=== PATIENT | female | born 2000 | race Caucasian/White ===

== ENCOUNTER 2018-01-21 23:46 | Inpatient (IN) | payer OTHER ==
[~2018-01-21] VITALS: Ht 157.5 cm; Wt 93.5 kg
[2018-01-21 23:55] VITALS: BP 127/88
[2018-01-22] VITALS (17 sets, daily range): BP systolic 106–131; BP diastolic 62–80
[2018-01-22 00:29] LABS: URINE BLOOD 3+ (Negative); URINE COLOR YELLOW; URINE GLUCOSE-RANDOM NEGATIVE (Negative); URINE KETONES NEGATIVE (Negative); URINE LEUKOCYTES-REFLEX TRACE (Negative); URINE NITRITE-REFLEX NEGATIVE (Negative); URINE PROTEIN 2+ (Negative); URINE SPECIFIC GRAVITY >= 1.030 (1.005-1.030); URINE UROBILINOGEN 0.2 E.U./dl (0.2-1.0)
--- NOTE | 2018-01-22 00:30 | NUR ---
PT'S FATHER HAS A PICTURE OF A BOTTLE OF AMITRIPTYLINE, 10 MG THAT HE CLAIMS THE PT TOLD HIM WERE THE PILLS SHE TOOK
[2018-01-22 00:32] LABS: ABSOLUTE BASOPHILS 0.1 thou/uL (0.0-0.2); ABSOLUTE LYMPHOCYTES 1.7 thou/uL (0.8-5.3); ABSOLUTE MONOCYTES 0.4 thou/uL (0.0-1.2); ABSOLUTE NEUTROPHILS 10.4 thou/uL (1.6-8.1); BASOPHILS 0.6 %; EOSINOPHILS 0.3 %; HEMATOCRIT 39.9 % (37.0-47.0); HEMOGLOBIN 13.2 gm/dL (12.0-15.0); LYMPHOCYTES 13.1 %; MCH 27.8 pg (26.0-34.0); MCHC 33.2 g/dL (28.0-37.0); MPV 9.1 fl. (7.2-11.1); NUCLEATED RBCS 0 /100WBC; PLATELET COUNT* 274 thou/uL (150-400); RBC 4.75 mil/uL (4.20-5.00); WBC 12.6 thou/uL (4.0-11.0)
[2018-01-22 00:33] LABS: URINE BILIRUBIN 1+ (Negative)
[2018-01-22 00:34] LABS: URINE CLARITY SL HAZY
[2018-01-22 00:35] LABS: ICTOTEST (BILI CONFIRMATORY) Negative (Negative)
[2018-01-22 00:36] LABS: AMP/METHAMP Negative (Negative); BARBITURATES Negative (Negative); BENZODIAZEPINES Negative (Negative); COCAINE Negative (Negative); METHADONE Negative (Negative); OPIATES Negative (Negative); PCP Negative (Negative); THC POSITIVE (Negative)
[2018-01-22 00:45] LABS: CALCIUM 8.8 mg/dL (8.5-10.1); CREATININE 0.9 mg/dL (0.6-1.3); POTASSIUM 4.1 mmol/L (3.5-5.1)
[2018-01-22 00:50] LABS: ALBUMIN 3.7 g/dL (3.4-5.0); TOTAL BILIRUBIN 0.4 mg/dL (<0.1-1.0); TOTAL PROTEIN 7.9 g/dL (6.4-8.2)
[2018-01-22 00:54] LABS: ACETAMINOPHEN < 2 ug/mL (10-30); ALCOHOL < 10 mg/dL (<10); SALICYLATE < 2.8 mg/dL (2.8-20.0)
[2018-01-22 00:57] LABS: SQUAMOUS >10 Many /LPF (0-3)
[2018-01-22 00:58] LABS: CASTS None Seen /LPF (None Seen)
[2018-01-22 00:59] LABS: BACTERIA-REFLEX >30 Many /HPF (None Seen); CRYSTALS None Seen /LPF (None Seen); URINE RBC >20 Many /HPF (0-2); URINE WBC-REFLEX 6-15 Few /HPF (0-5)
--- NOTE | 2018-01-22 06:54 | NUR ---
PATIENT ARRIVED ON UNIT AT 0230. INSOLE ROUNDER COMPLETED DOCUMENTED. SCD'S IN PLACE. PATIENT ABLE TO AMBULATE INDEPENDENTLY TO THE BS. NO PROBLEMS URINATING. URINE YELLOW AND CLEAR. IV PATENT TO FLUIDS. SITTER IN PLACE. ROOM SCRUBBED PER PROTOCOL. NO COMPLAINTS OF PAIN OR DISCOMFORT NOTED. SIGNIFICANT OTHER AT BEDSIDE THIS MORNING. PATIENT HAD TO BE REORIENTED TO WHERE SHE WAS AND WHAT HAPPENED WHEN SHE AWAKENED THIS AM. WILL CONTINUE TO MONITOR.
--- NOTE | 2018-01-22 08:19 | NUR ---
0730 ASSUMED CARE OF PATIENT. SEE DOCUMENTED ASSESSMENT. PT IS POSSIBLE SI AND ROM SCRUBBED OF ALL HARMFUL EQUIPMENT. VISITOR SCRUBBED. DR TINSLEY TO SEE PATIENT AND ORDERS NOTED. PT CAN BE TELE STATUS. SITTER AT BEDSIDE.
--- NOTE | 2018-01-22 08:20 | NUR ---
PSYCH CONSULT CALLED AND CONTACT MADE WITH E PSYCH
--- NOTE | 2018-01-22 11:21 | NUR ---
PSYCH RECOMMKENDATIONS TO DR TINSLEY;FATHER NOTIFIED OF PLAN OF CARE. CASE MANAGEMENT NOTIFIED OF PLAN OF CARE AND GOALS.
--- NOTE | 2018-01-22 13:07 | EKG ---
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2000 Requested By: Miguel Fleming Order Number: [id number] MD: Christian Serrano Measurements Intervals [place] Rate: 126 P: 39 VA: 144 QRS: 11 QRSD: 73 T: 1 QT: 294 QTc: 426 Interpretive Statements Sinus tachycardia Ventricular premature complex Borderline T abnormalities, anterior leads No previous ECG available for comparison Electronically Signed On 01-22-2018 13:07:38 CDT by Christian Serrano [email or web address] <ELECTRONICALLY SIGNED> By: Christian Serrano MD, [facility] 01/22/18 1307 0016 001 Christian Serrano MD, [facility] /EPI
--- NOTE | 2018-01-22 13:11 | NUR ---
PT IS TELE STATUS IN THE ICU. AWAITING DISPOSITION PER PSYCHIATRIST RECOMMENDATIONS
--- NOTE | 2018-01-22 13:57 | NUR ---
DR PERAZA HERE TO SEE PATIENT AND PLANS TO DO CARDIAC CATH TODAY. PATIENT HAS HAD PRIOR STENT AND INDICATES UNDERSTANDING OF PROCEDURE. PT SIGNED CONSENT FOR CARDIAC CATH. HAS BEEN NPO SINCE ADMISSION.
--- NOTE | 2018-01-22 15:51 | EKG ---
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2000 Requested By: Nagi Harrison Order Number: [id number] MD: Christian Serrano Measurements Intervals [place] Rate: 83 P: 46 ME: 153 QRS: 7 QRSD: 83 T: 5 QT: 370 QTc: 435 Interpretive Statements Sinus rhythm Borderline T abnormalities, anterior leads Compared to ECG 01/22/2018 00:16:44 Sinus tachycardia no longer present Ventricular premature complex(es) no longer present T-wave abnormality still present Electronically Signed On 01-22-2018 15:51:36 CDT by Christian Serrano [email or web address] <ELECTRONICALLY SIGNED> By: Christian Serrano MD, [facility] 01/22/18 1551 [id number] [id number] Christian Serrano MD, [facility] /EPI
--- NOTE | 2018-01-22 16:10 | NUR ---
REPORTED TO PATIENT THAT NURSE WHO ADMITTED HIM LET MORTAR MIXER OPERATOR KNOW HIS FRIEND HAD TAKEN HIS WALLET AND PHONE WITH HIM WHEN HE LEFT. PATIENT IS REASSURED
--- NOTE | 2018-01-22 16:49 | NUR ---
PATIENT AND FATHER NOTIFIED OF PLAN MOVE TO 229
--- NOTE | 2018-01-22 17:13 | NUR ---
PATIENT PROGRESSING TOWARDS GOALS. PSYCH CONSULT COMPLETED. DIET RESUMED. NOW OFF OF IVF AND WILL MOVE TO TELEMETRY. SAFETY MAINTAINED WITH SITTER. HAS HAD VISITORS AND SUPPORT FROM FAMILY. GOAL IS TRANSITION TO INPATIENT PSYCH
--- NOTE | 2018-01-22 18:32 | NUR ---
TRANSFERRED PER WHEELCHAIR TO 214 WITH ALL RECORDS AND BELONGINGS. SITTER IN ATTENDANCE
--- NOTE | 2018-01-22 18:55 | NUR ---
RECEIVED SBAR FROM ICU AND ASSUMED CARE OF PT @ 1830.PT IS A/O X4,VSS,TRACING SR ON THE MONITOR.PT IS CALM AND COOPERATIVE WITH SITTER AT BEDSIDE.PT IS UP AD HAN.RESTING IN BED WITH CALL LIGHT IN PLACE.WILL CONTINUE TO MONITOR FOR DURATION OF SHIFT.
--- NOTE | 2018-01-22 23:34 | NUR ---
PATIENT RESTING/SLEEPING. VISITOR EARLIER. DENIES COMPLAINTS. ONE TO ONE SITTER. NO SIGN OF DISTRESS.
[2018-01-23 00:08] VITALS: BP 120/69
[2018-01-23 03:42] VITALS: BP 117/72
--- NOTE | 2018-01-23 06:42 | NUR ---
PATIENT HAS SLEPT THE BIGGEST PART OF THIS SHIFT. SHE STATES FEELS OK. DOES NOT SAY MUCH. VISITOR EARLIER IN EVENING YESTERDAY. CONT. ONE TO ONE SITTER
--- NOTE | 2018-01-23 07:00 | NUR ---
CHANGE OF SHIFT REPORT GIVEN PATIENT SEEN IN ROOM AND IN BED SITTER SI, ROOM PREPARED PATIENT DENIES SI/HI THOGHTS AND IDEAS ASSUMED PATIENT CARE
[2018-01-23 08:00] VITALS: BP 113/65
[2018-01-23 09:52] LABS: ABSOLUTE EOSINOPHILS 0.1 thou/uL (0.0-0.7); ABSOLUTE LYMPHOCYTES 1.9 thou/uL (0.8-5.3); ABSOLUTE MONOCYTES 0.4 thou/uL (0.0-1.2); BASOPHILS 0.5 %; HEMATOCRIT 38.4 % (37.0-47.0); HEMOGLOBIN 12.9 gm/dL (12.0-15.0); LYMPHOCYTES 25.6 %; MCH 28.5 pg (26.0-34.0); MCHC 33.5 g/dL (28.0-37.0); MCV 84.9 fL (80.0-100.0); MPV 8.6 fl. (7.2-11.1); NUCLEATED RBCS 0 /100WBC; PLATELET COUNT* 258 thou/uL (150-400); POLYS 67.9 %; RBC 4.52 mil/uL (4.20-5.00); WBC 7.4 thou/uL (4.0-11.0)
--- NOTE | 2018-01-23 10:03 | NUR ---
Pt in agreement with going to in psych, Pt stated that she does not want to go to [facility], but is open to any other facility. Pt is A&O. Independent, works FT. Lives at home with her boyfriend. Pt stated that she moved out of her parents home about 5months ago and stated that money is tight at home, she has been stressed out with financial issues, and wanted to just sleep the day that she took all of the pills. Pt stated that she was not trying to harm herself, Pt was able to understand the hospital responsibility towards a situation like this. CM faxed referral sto [facility]. Awaiting decision to accept. Pt is medically stable for dc. Following.
[2018-01-23 10:14] LABS: ALBUMIN 3.3 g/dL (3.4-5.0); CALCIUM 8.3 mg/dL (8.5-10.1); CREATININE 0.7 mg/dL (0.6-1.3); POTASSIUM 3.7 mmol/L (3.5-5.1); TOTAL BILIRUBIN 0.6 mg/dL (<0.1-1.0); TOTAL PROTEIN 7.3 g/dL (6.4-8.2)
--- NOTE | 2018-01-23 11:43 | EKG ---
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2000 Requested By: Nagi Harrison Order Number: [id number] MD: Joshua Nolasco Measurements Intervals [place] Rate: 84 P: 47 UT: 148 QRS: 11 QRSD: 80 T: 3 QT: 351 QTc: 415 Interpretive Statements Sinus rhythm Compared to ECG 01/22/2018 08:41:48 T-wave abnormality no longer present Electronically Signed On 01-23-2018 11:43:13 CDT by Joshua Nolasco [email or web address] <ELECTRONICALLY SIGNED> By: Joshua Nolasco MD, [facility] 01/23/18 1143 1036 1036 Joshua Nolasco MD, [facility] /EPI
[2018-01-23 16:00] VITALS: BP 113/69
--- NOTE | 2018-01-23 20:00 | NUR ---
RECEIVED REPORT AND ASSUMED CARE OF PT, ASSESSMENT COMPLETED. FAMILY AT BEDSIDE. 1:1 SITTER AT BEDSIDE. PT AND FAMILY ASKING WHY SHE IS STILL HERE AND NOT TRANSFERRED. EXPLAINED NO AVAILABLITY AND CHECKING INTO INSURANCE ALSO. PT TEARFUL WITH FLAT AFFECT. PT ASKING FOR PHONE AT BEDSIDE, EXPLAINED UNABLE TO ALLOW PT TO HAVE OUTSIDE CONTACT DUE TO NOT BEING ABLE TO SCREEN SITUATION. WILL CONT TO MONITOR AND ASSIST NEEDED.
[2018-01-23 20:30] VITALS: BP 142/73
--- NOTE | 2018-01-24 00:18 | NUR ---
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
[2018-01-24 04:00] VITALS: BP 106/62
--- NOTE | 2018-01-24 06:26 | NUR ---
ASSESSMENT UNCHANGED. CONT TO BE CONSTANT 1:1 OBSERVATION. SLEPT FAIRLY WELL. PT HAVING A FLAT AFFECT, DOES NOT VOLUNTEER CONVERSATION. HS GOALS OF REST AND SAFETY ACHIEVED.
[2018-01-24 08:45] VITALS: BP 132/77
[2018-01-24 12:00] VITALS: BP 134/85
--- NOTE | 2018-01-24 12:30 | NUR ---
ASSUMED CARE OF PT AT 0835. PT RESTING IN BED. 1:1 SITTER AT BEDSIDE AT ALL TIMES. PT DENIES ANY PAIN OR SHORTNESS OF BREATH AT THIS TIME. PT A&0X4. PT MED SURG STATUS. VSS. PT ON RA SAT 97%. PT UP AD HAN IN ROOM. PT GOAL FOR TODAY IS TO FIND PLACEMENT FOR PT. PT REQUESTING ANOTHER TELE PSYCH EVAL. PT STATES SHE WAS NOT TRYING TO HURT HERSELF, SHE WAS JUST TRYING TO SLEEP AND IS READY TO GO HOME. PT ROOM CLEARED OF ALL PERSONAL BELONGINGS NOTED- TAMPAX, BRUSH AND JOURNAL AND GIVEN TO SECURITY. PT UPSET THAT SHE CANT HAVE ANY PERSONAL BELONGINGS. PT EDUCATED ON HOSPITAL POLICIES AND PROCEDURES. PT GOAL FOR TODAY IS TO FIND PLACEMENT ACCEPTANCE AND/OR ADDITIONAL TELE PSYCH EVAL. AM ASSESSMENT CHARTED. MEDICATIONS PER MAR. PT REPOSITIONS SELF. HOURLY ROUNDING OBSERVED. BED IN LOW POSITION. CALL LIGHT WITHIN REACH. WILL CONTINUE PLAN OF CARE.
[2018-01-24 16:48] VITALS: BP 128/31
--- NOTE | 2018-01-24 19:59 | NUR ---
NO ACUTE CHANGES THROUGHOUT SHIFT. REFER TO CHARTING. PT HAD RE EVAL CONSULT WITH TELE PSYCH. THIS RN PRESENT WELL. [facility] RECOMMENDATIONS SENT OVER STATING OK FOR PT TO DISCHARGE, DISCHARGE 1:1 SITTER AND INVOLUNTARY COMMITMENT, NO NEED FOR NEW MEDS, PT TO FOLLOW UP OUTPT. DR NELSON NOTIFIED OF RESULTS. ORDERS RECEIVED TO DC SITTER AND INVOLUNTARY COMMITMENT BUT FOR PT TO STAY OVERNIGHT FOR LABS IN AM. ORDERS RECEIVED FOR TROPONIN LEVEL AND EKG WELL. PT POSSIBLY TO DISCHARGE HOME TOMORROW 01/25. MEDICATIONS PER OCT. PT CONTINUES TO BE MED SURG. ON RA SAT UPPER 90'S. DENIES ANY PAIN OR SHORTNESS OF BREATH THROUGHOUT SHIFT. PT UP AD HAN. PT REPOSITIONS SELF. HOURLY ROUNDING OBSERVED. BED IN LOW POSITION. CALL LIGHT WITHIN REACH. WILL CONTINUE PLAN OF CARE.
[2018-01-24 20:00] VITALS: BP 135/87
--- NOTE | 2018-01-24 20:45 | NUR ---
PT REQUESTED TO LEAVE AMA. DR BAL NOTIFIED. ORDER RECEIVED FOR PT TO LEAVE AMA PER TELEPHONE. PT LEFT ESCORTED BY SAMI ELIZABETH. PT PARENTS ALSO WITH HER TO PROVIDE TRANSPORTATION.
== END 2018-01-24 19:55 | disposition left against medical advice (07) | DRG 917 ==
LOC: M.ERS 23:46 → M.ICU 01-22 01:00 → M.TBA-ER 01-22 01:00 → M.ICU 01-22 03:12 → M.2W 01-22 18:27
PROVIDERS: Emergency Medicine; Internal Medicine; ADMIT Internal Medicine
DX: T43.011A Poisoning by tricyclic antidepressants, accidental (unintentional), initial encounter (principal); G92 Toxic encephalopathy; F12.10 Cannabis abuse, uncomplicated; E66.9 Obesity, unspecified; F32.9 Major depressive disorder, single episode, unspecified; Y92.098 Other place in other non-institutional residence as the place of occurrence of the external cause; Z88.6 Allergy status to analgesic agent; Z53.21 Procedure and treatment not carried out due to patient leaving prior to being seen by health care provider

== ENCOUNTER 2021-09-28 05:54 | Emergency (ER) | payer OTHER ==
[~2021-09-28] VITALS: Ht 160 cm; Wt 54.9 kg
[2021-09-28] MEDS ORDERED: TOPAMAX50 MG PO (06:09)
[2021-09-28] MEDS ORDERED: LEXAPRO 10 MG T10 M1 PO (06:09)
[2021-09-28 06:13] LABS: URINE BILIRUBIN NEGATIVE (Negative); URINE BLOOD 2+ (Negative); URINE CLARITY CLEAR; URINE COLOR ORANGE; URINE GLUCOSE-RANDOM 1+ (Negative); URINE KETONES TRACE (Negative); URINE LEUKOCYTES-REFLEX 1+ (Negative); URINE PROTEIN 3+ (Negative); URINE SPECIFIC GRAVITY 1.025 (1.005-1.030); URINE UROBILINOGEN >= 8.0 E.U./dl (0.2-1.0)
[2021-09-28 06:26] LABS: URINE NITRITE-REFLEX POSITIVE (Negative)
[2021-09-28] MEDS ORDERED: MACROBID 100 M100 M1 PO (06:45)
[2021-09-28] MEDS ORDERED: APAP W/CODEINE1 TA2 PO (06:45)
[2021-09-28] MEDS ORDERED: ZOFRAN ODT4 MG PO (06:45)
[2021-09-28 06:50] LABS: SQUAMOUS NONE SEEN /LPF (0-3)
[2021-09-28 06:51] LABS: CASTS None Seen /LPF (None Seen); CRYSTALS None Seen /LPF (None Seen); URINE RBC 3-10 Few /HPF (0-2); URINE WBC-REFLEX 0-5 Rare /HPF (0-5)
[2021-09-28 06:56] VITALS: BP 103/57
[2021-09-29] MEDS ORDERED: METRONIDAZOLE500 M4 PO (16:12)
[2021-09-29] MEDS ORDERED: DOXYCYCLINE 10100 MG PO (16:14)
[2021-09-29] MEDS ORDERED: DIFLUCAN200 MG PO (16:14)
== END 2021-09-28 06:57 | disposition home or self-care (01) ==
LOC: M.ERS 05:54
PROVIDERS: Emergency Medicine
DX: N39.0 Urinary tract infection, site not specified (principal); F32.9 Major depressive disorder, single episode, unspecified; F41.9 Anxiety disorder, unspecified; E66.9 Obesity, unspecified; Z79.899 Other long term (current) drug therapy; Z88.6 Allergy status to analgesic agent; Z88.8 Allergy status to other drugs, medicaments and biological substances; Z68.21 Body mass index [BMI] 21.0-21.9, adult

== ENCOUNTER 2021-09-29 14:42 | Emergency (ER) | payer OTHER ==
[~2021-09-29] VITALS: Ht 157.5 cm; Wt 86.2 kg
[~2021-09-29 14:42] MED LIST: APAP W/CODEINE1 TA2 PO; LEXAPRO 10 MG T10 M1 PO; MACROBID 100 M100 M1 PO; TOPAMAX50 MG PO; ZOFRAN ODT4 MG PO
[2021-09-29 15:21] LABS: URINE COLOR ORANGE
[2021-09-29 15:22] LABS: URINE CLARITY CLOUDY
[2021-09-29 15:30] LABS: SQUAMOUS >10 Many /LPF (0-3); URINE RBC 3-10 Few /HPF (0-2); URINE WBC-REFLEX 0-5 Rare /HPF (0-5)
[2021-09-29 15:31] LABS: BACTERIA-REFLEX >30 Many /HPF (None Seen); CASTS None Seen /LPF (None Seen); CRYSTALS None Seen /LPF (None Seen)
[2021-09-29] MEDS ORDERED: METRONIDAZOLE500 M4 PO (16:12)
[2021-09-29] MEDS ORDERED: DOXYCYCLINE 10100 MG PO (16:14)
[2021-09-29] MEDS ORDERED: DIFLUCAN200 MG PO (16:14)
[2021-09-29 16:23] VITALS: BP 133/90
== END 2021-09-29 16:23 | disposition home or self-care (01) ==
LOC: M.ERS 14:42
PROVIDERS: Physician Assistant
DX: N76.0 Acute vaginitis (principal); B96.89 Other specified bacterial agents as the cause of diseases classified elsewhere; R11.2 Nausea with vomiting, unspecified; R30.0 Dysuria; F32.9 Major depressive disorder, single episode, unspecified; F41.9 Anxiety disorder, unspecified; E66.9 Obesity, unspecified; Z68.34 Body mass index [BMI] 34.0-34.9, adult; Z79.899 Other long term (current) drug therapy; Z88.6 Allergy status to analgesic agent